=== PATIENT | female | born 1945 | race African-American/Black ===

== ENCOUNTER 2021-11-20 17:47 | Inpatient (IN) ==
[2021-11-20] MEDS ORDERED: Lidocaine 4% CREAM (LMX) 5 GM TUBE TOPICAL ONE (20:00)
[2021-11-20 21:52] LABS: High Sens Troponin Baseline 6 pg/mL (<15)
[2021-11-20 22:08] LABS: ALT 35 U/L (7-52); AST 43 U/L (13-39); Albumin 3.2 g/dL (3.2-5.2); Albumin/Globulin Ratio 1.2 (1-3); Alkaline Phosphatase 77 U/L (35-149); Anion Gap 10 mmol/L (2-11); Blood Urea Nitrogen 18 mg/dL (6-24); CO2 Carbon Dioxide 25 mmol/L (22-32); Calcium 8.3 mg/dL (8.6-10.3); Chloride 102 mmol/L (101-111); Globulin 2.6 g/dL (2-4); Glucose 100 mg/dL (70-100); Magnesium 1.9 mg/dL (1.9-2.7); Potassium 3.7 mmol/L (3.5-5.0); Sodium 137 mmol/L (135-145); Total Protein 5.8 g/dL (6.4-8.9); eGFR CKD-EPI 91.7 (>60)
[2021-11-20 22:11] LABS: Hematocrit 29 % (35-47); Hemoglobin 9.4 g/dL (12.0-16.0); Mean Corpuscular HGB Conc 33 g/dL (31-36); Mean Corpuscular Hemoglobin 29 pg (27-31); Mean Corpuscular Volume 88 fL (80-97); Red Blood Count 3.25 10^6 /uL (3.70-4.87); Red Cell Distribution Width 14 % (10-15); White Blood Count 5.7 10^3/uL (3.5-10.8)
[2021-11-20 22:48] LABS: High Sensitivity Troponin 1 Hr 5 pg/mL (<15)
[2021-11-20 22:49] LABS: Anisocytosis 1+; RBC Morphology Normal (Normal)
[2021-11-20 22:51] LABS: ABS Lymphocytes 1.8 10^3/ul (1.0-4.8); ABS Monocytes 0.7 10^3/ul (0-0.8); ABS Neutrophils 3.2 10^3/ul (1.5-7.7); ABS Nucleated RBC 0.3 10^3/ul; Dohle Bodies Present; Eosinophil % 0.4 %; Giant Platelets Present; Lymphocyte % 31.2 %; Mean Platelet Volume 7.7 fL (7.4-10.4); Nucleated Red Blood Cells % 4.9; Platelet Count 96 10^3/uL (150-450)
[2021-11-20 23:17] LABS: Amylase < 10 U/L (29-103); Lipase < 10 U/L (11.0-82.0)
[2021-11-21] MEDS ORDERED: Ondansetron 4 mg VIAL 2 MG/ML 2 ml VIAL IV PRN (00:57)
[2021-11-21 04:03] LABS: Urine Appearance Cloudy; Urine Bilirubin Negative (Negative); Urine Blood 1+ (Negative); Urine Color Amber; Urine Glucose Negative (Negative); Urine Ketones 2+ (Negative); Urine Nitrite Positive (Negative); Urine Protein 1+(30 mg/dL) (Negative); Urine Specific Gravity 1.025 (1.002-1.030); Urine Urobilinogen Negative (Negative)
[2021-11-21 04:10] LABS: Urine Bacteria 3+ (Absent); Urine Red Blood Cell 2+(6-10/hpf) (Absent); Urine Squamous Epithelial Cell Present (Absent); Urine White Blood Cell 3+(>20/hpf) (Absent)
[2021-11-21] MEDS: NS 0.9% 1000 ml BAG 1,000 ML IV SCH (05:38)
[2021-11-21] MEDS ORDERED: Prochlorperazine 5 mg/ml 2 ml VIAL (10 mg) IV PRN (07:20)
[2021-11-21] MEDS ORDERED: cefTRIAXone 1 gm/50 mL D5W 1 GM/50 ML BAG IV ONE (07:47)
[2021-11-21] MEDS ORDERED: fentaNYL PATCH 12 MCG/HR 1 PATCH TRANSDERM SCH (08:00)
[2021-11-21] MEDS ORDERED: Senna TAB 8.6 mg TAB PO PRN (08:31)
[2021-11-21] MEDS ORDERED: Magnesium Hydroxide LIQ 30 ML UDC PO PRN (08:31)
[2021-11-21] MEDS ORDERED: Fluticas/Salmet 115/21 HFA(NF) MDI INH SCH (09:00)
[2021-11-21] MEDS ORDERED: Furosemide 20 mg/2 ml IV VIAL IV SLOW PU SCH (09:00)
[2021-11-21] MEDS ORDERED: Fluconazole 400 MG IVPREMIX 400 MG/200 ML BAG IVPB SCH (11:00)
[2021-11-21] MEDS: Polyethylene Glycol 3350 17 GM PACKET PO SCH ×3 (11:31→20:55)
[2021-11-21] MEDS: Pantoprazole VIAL 40 MG VIAL IV SCH (11:32)
[2021-11-21] MEDS: fentaNYL PATCH 25 MCG/HR 1 PATCH TRANSDERM SCH (11:36)
[2021-11-21] MEDS: Mometasone/Formoter 200/5 MDI INH SCH ×2 (12:15→21:22)
[2021-11-21 13:53] LABS: Total Iron Binding Capacity 262 mcg/dL (250-450); Transferrin 187 mg/dL (203-362)
[2021-11-21 13:56] LABS: % Iron Saturation 8 % (15-55); Iron < 20 ug/dL (50-212); Unsaturated Iron Binding 242 ug/dL
[2021-11-21 14:13] LABS: Ferritin 579.3 ng/mL (11-307)
[2021-11-21] MEDS ORDERED: Midazolam 10 mg/10 ml VIAL 1 mg/ml 10 ml VIAL (10 mg) ONE (14:14)
[2021-11-21] MEDS ORDERED: fentaNYL 100 mcg/2 ml 50 MCG/ML VIAL ONE (14:14)
[2021-11-21] MEDS: cefTRIAXone 1 gm/50 mL D5W 1 GM/50 ML BAG IV SCH (18:09)
[2021-11-21] MEDS: fentaNYL Patch Check Q Shift NOTE FOLLOW UP SCH ×2 (19:13)
[2021-11-21] MEDS: Senna TAB 8.6 mg TAB PO SCH (20:53)
[2021-11-22 05:06] LABS: Hematocrit 26 % (35-47); Hemoglobin 8.5 g/dL (12.0-16.0); Mean Corpuscular HGB Conc 33 g/dL (31-36); Mean Corpuscular Hemoglobin 29 pg (27-31); Mean Corpuscular Volume 89 fL (80-97); Mean Platelet Volume 8.5 fL (7.4-10.4); Platelet Count 104 10^3/uL (150-450); Red Blood Count 2.96 10^6 /uL (3.70-4.87); Red Cell Distribution Width 14 % (10-15)
[2021-11-22 05:10] LABS: ABS Eosinophils 0.1 10^3/ul (0-0.6); ABS Lymphocytes 1.7 10^3/ul (1.0-4.8); ABS Monocytes 1.1 10^3/ul (0-0.8); ABS Neutrophils 4.2 10^3/ul (1.5-7.7); ABS Nucleated RBC 0.1 10^3/ul; Eosinophil % 0.9 %; Lymphocyte % 23.6 %; Nucleated Red Blood Cells % 1.6
[2021-11-22 05:15] LABS: Calcium 7.7 mg/dL (8.6-10.3); Potassium 3.1 mmol/L (3.5-5.0)
[2021-11-22 05:21] LABS: eGFR CKD-EPI 103.8 (>60)
[2021-11-22] MEDS: fentaNYL Patch Check Q Shift NOTE FOLLOW UP SCH ×2 (07:48→18:32)
[2021-11-22] MEDS ORDERED: fentaNYL PATCH 12 MCG/HR 1 PATCH TRANSDERM SCH (08:00)
[2021-11-22] MEDS: DULoxetine DR 60 mg CAP PO SCH (08:40)
[2021-11-22] MEDS: Pantoprazole VIAL 40 MG VIAL IV SCH (08:41)
[2021-11-22] MEDS: KCL 10 MEQ/50 ML IVPREMIX 10 MEQ/50 ML BAG IV SCH ×3 (08:42→11:08)
[2021-11-22] MEDS: Polyethylene Glycol 3350 17 GM PACKET PO SCH ×2 (08:42→20:23)
[2021-11-22] MEDS: Mometasone/Formoter 200/5 MDI INH SCH ×2 (08:44→21:16)
[2021-11-22] MEDS: fentaNYL PATCH 25 MCG/HR 1 PATCH TRANSDERM SCH (09:44)
[2021-11-22] MEDS ORDERED: Enoxaparin 40 MG/0.4 ML SYR SUBCUT SCH (12:00)
[2021-11-22] MEDS: cefTRIAXone 1 gm/50 mL D5W 1 GM/50 ML BAG IV SCH (12:38)
[2021-11-22] MEDS: NS 0.9% 1000 ml BAG 1,000 ML IV SCH (12:39)
[2021-11-22] MEDS: Senna TAB 8.6 mg TAB PO SCH (20:22)
[2021-11-23] MEDS: NS 0.9% 1000 ml BAG 1,000 ML IV SCH (01:58)
[2021-11-23] MEDS: fentaNYL Patch Check Q Shift NOTE FOLLOW UP SCH (06:56)
[2021-11-23] MEDS: DULoxetine DR 60 mg CAP PO SCH (07:50)
[2021-11-23] MEDS: Pantoprazole VIAL 40 MG VIAL IV SCH (07:50)
[2021-11-23] MEDS: Mometasone/Formoter 200/5 MDI INH SCH (08:25)
[2021-11-23 08:36] LABS: Hematocrit 28 % (35-47); Hemoglobin 9.1 g/dL (12.0-16.0); Mean Corpuscular HGB Conc 33 g/dL (31-36); Mean Corpuscular Hemoglobin 29 pg (27-31); Mean Corpuscular Volume 89 fL (80-97); Mean Platelet Volume 8.5 fL (7.4-10.4); Platelet Count 174 10^3/uL (150-450); Red Blood Count 3.16 10^6 /uL (3.70-4.87); Red Cell Distribution Width 14 % (10-15); White Blood Count 10.1 10^3/uL (3.5-10.8)
[2021-11-23 09:06] LABS: ABS Eosinophils 0.1 10^3/ul (0-0.6); ABS Lymphocytes 1.9 10^3/ul (1.0-4.8); ABS Monocytes 1.4 10^3/ul (0-0.8); ABS Neutrophils 6.7 10^3/ul (1.5-7.7); ABS Nucleated RBC 0.1 10^3/ul; Eosinophil % 0.6 %; Lymphocyte % 18.9 %; Nucleated Red Blood Cells % 1.2
[2021-11-23 09:20] LABS: Albumin 2.5 g/dL (3.2-5.2); Albumin/Globulin Ratio 1.1 (1-3); Calcium 7.2 mg/dL (8.6-10.3); Globulin 2.2 g/dL (2-4); Magnesium 1.4 mg/dL (1.9-2.7); Potassium 3.3 mmol/L (3.5-5.0); Total Bilirubin 0.3 mg/dL (0.2-1.0); Total Protein 4.7 g/dL (6.4-8.9); eGFR CKD-EPI 100.4 (>60)
[2021-11-23] MEDS: Polyethylene Glycol 3350 17 GM PACKET PO SCH (09:30)
[2021-11-23] MEDS ORDERED: Potassium Chlor 20 meq TAB.ER PO ONE (09:34)
[2021-11-23] MEDS ORDERED: Magnesium Sulf 4 GM/100 ML IV 4,000 MG/100 ML BAG IVPB ONE (09:34)
[2021-11-23 11:23] VITALS: BP 139/56
[2021-11-23] MEDS ORDERED: Magic MouthWash1-BEN/MAAL/LIDO 180 ML BTL SWISH SPIT SCH (13:00)
== END 2021-11-23 14:00 | disposition home or self-care (01) | DRG 392 ==
LOC: ED 17:47 → SUATTDRO 11-21 00:57 → EDHOLD 11-21 00:57 → MEDTELE 11-21 09:54
PROVIDERS: ADMIT Internal Medicine; ATTEND Internal Medicine